=== PATIENT | female | born 1950 | race Caucasian/White ===

== ENCOUNTER 2022-01-13 09:15 | Emergency (ER) | payer SELFPAY ==
--- NOTE | ~2022-01-13 | XR_ITS ---
EXAMINATION: XR lumbar spine 2-3V CLINICAL INFORMATION: Reason for Exam back pain. COMPARISON: None TECHNIQUE: 3 views of the lumbar spine FINDINGS: 5 nonrib-bearing lumbar-type vertebral bodies. Generalized osteopenia which somewhat limits evaluation. Vertebral body heights are maintained. Grade 2 anterolisthesis of L5 on S1. L5-S1 moderate facet arthropathy. Disc space heights are maintained. Paravertebral soft tissues are unremarkable. XR/XR lumbar spine 2-3V IMPRESSION: * Moderate facet arthropathy at L5-S1. Disc space heights are maintained. * Grade 2 anterolisthesis of L5 on S1. * Osteopenia.
[2022-01-13 09:50] VITALS: BP 171/59; PULSE 77; RESP 18; TEMP 36.4; O2SAT 99; BMI 30.9
--- NOTE | 2022-01-13 10:23 | ED_ITS ---
HPI - Back Pain/Injury General Chief Complaint: Back Pain/Injury Stated Complaint: back pain Time Seen by Provider: 01/13/22 10:05 Source: patient Mode of arrival: ambulatory Limitations: no limitations History of Present Illness HPI Narrative: 71-year-old female presents to ED for low back pain that is worse on movement. Patient denies any dysuria, hematuria, abdominal pain, nausea, vomiting, fever, chills, flank pain, or any recent trauma. patient denies any Urinary or bowel incontinence. patietn states no history of IV drug use. Patient has no immunocompromised diseases. MD elicited complaint: back pain Related Data Previous Rx's Medication Instructions Recorded oxycodone 5 mg tablet 5 mg PO Q8H PRN pain 3 days #9 tabs 01/13/22 prednisone 20 mg tablet 40 mg PO DAILY 5 days #10 tabs 01/13/22 Allergies Allergy/AdvReac Type Severity Reaction Status Date / Time No Known Allergies Allergy Verified 01/13/22 09:53 Review of Systems Review of Systems: Back pain on movement Yes all other systems are reviewed and are negative [facility] Social History Social History Advance Directives: No Advance Directives Information Provided: Yes Physical Exam Vital Signs: Vital Signs: Last Vital Signs Temp 97.6 F 01/13/22 13:25 Pulse 58 01/13/22 13:25 Resp 16 01/13/22 13:25 BP 132/67 01/13/22 13:25 Pulse Ox 99 01/13/22 13:25 O2 Del Method 01/13/22 13:25 BMI result Body Mass Index 30.9 Const: General: cooperative, healthy appearing, comfortable, no acute distress, well developed, alert, awake and Physically active Orientation/consciousness: oriented to time and patient oriented x3 HEENT: Head: Yes normal to inspection, Yes No palpable skull fracture present, Yes normocephalic, Yes atraumatic and No abrasion Eyes: General: appearance normal, both eyes and all related structures Neck: Neck: Yes normal visual inspection, Yes full ROM, Yes no lymphadenopathy, Yes no meningeal signs, Yes trachea midline, Yes supple, No anterior neck swelling and No tender Chest: Chest palpation & inspection: normal inspection of the chest and normal palpation of entire chest wall Resp: Effort & Inspection: normal respiratory effort and able to speak in complete sentences Auscultation: clear to auscultation bilaterally Cardio: Jugular venous distension: no JVD Heart sounds: S1 normal heart sound present and S2 normal heart sound present GI: Inspection: Yes normal to inspection and No abdominal wall ecchymosis Palpation (GI): Soft to palpation, not firm, nontender, no guarding and not rigid : General: No CVA tenderness and Yes no CVA tenderness Back/Spine/Pelvis: Other: negative for spine tenderness. Postive for low back pain on range of motion. Back: no CVA tenderness, No CVA tenderness and No back tenderness Skin: General skin exam: no rashes or lesions noted and elasticity normal Neuro: Other: Negative slurred speech. Negative facial droop. negative pronator drift. All extremities equal strenght 5+. Finger to nose and rapid movement intact. negative rhomberg General: oriented to time, patient oriented x3, gait normal, tone normal and no meningeal signs Cranial nerves: Yes CN's II-XII intact bilaterally Cognition (Neuro): normal cognition Gait exam (Neuro): Normal gait present Extrem: General: Yes normal to inspection and Yes full ROM Psych: Appearance: grossly normal and well ket Course Course Course Narrative: UA. lumbar xray, and toradol ordered Reevaluation(s) Reevaluation #1: X-ray shows arthritis. Given Toradol and oxycodone for pain relief Time: 13:34 MDM - Back Pain/Injury MDM Narrative Medical decision making narrative: Lumbar radicular passing Lab Data Labs: Lab Results 01/13/22 Range/Units 10:28 Urine Color YELLOW Urine Appearance CLEAR Urine pH 6.0 (5.0-8.0) Ur Specific [place] 1.010 (1.005-1.025) Urine Protein NEG (NEG-TRACE) MG/DL Urine Glucose (UA) NEG (NEG) MG/DL Urine Ketones NEG (NEG) MG/DL Urine Blood NEG (NEG) Urine Nitrite NEG (NEG) Ur Leukocyte Esterase NEG (NEG) Discharge Plan Discharge Clinical Impression: Lumbar radiculopathy Patient Disposition: Home, Self-Care Instructions: Lumbar Radiculopathy (ED) Additional Instructions: Andino orina result? negativa para infecci?n. La radiograf?a de la columna lumbar muestra artritis. Por favor, judy un seguimiento con el proveedor de atenci?n primaria. Regrese al servicio de urgencias por cualquier incontinencia urinaria/intestinal, dolor abdominal, n?useas, v?mitos, disuria, hematuria, uria, fiebre, escalofr?os, dolor tor?cico, dificultad para respirar o cualquier otro s?ntoma preocupante; consulte al m?dico de atenci?n primaria. El efecto secundario de la oxicodona es la somnolencia. No lo tome mientras conduce, levanta objetos pesados ??o en el trabajo. Prescriptions: New oxycodone 5 mg tablet 5 mg PO Q8H PRN (Reason: pain) 3 Days Qty: 9 0RF Rx Instructions: Partial Fill upon patient request. prednisone 20 mg tablet 40 mg PO DAILY 5 Days Qty: 10 0RF Interventions: ED Discharge Assessment Last Done: 01/13/22 13:42 Discharge Date/Time: 01/13/22 13:42 Print Language: [place]
[2022-01-13] MEDS: Ketorolac Tromethamine 30 MG/ML VIAL IM (10:29)
[2022-01-13 10:38] LABS: Appearance Urine CLEAR; Color Urine YELLOW; Glucose Urine UA NEG (NEG); Leukocyte Esterase Urine NEG (NEG); Nitrite Urine NEG (NEG); Urine Blood NEG (NEG); Urine Ketones NEG (NEG); Urine Protein NEG (NEG-TRACE)
[2022-01-13 12:00] VITALS: RESP 17
[2022-01-13] MEDS: oxyCODONE HCl Immed Release 5 MG TABLET PO (12:45)
[2022-01-13 13:25] VITALS: BP 132/67; PULSE 58; RESP 16; TEMP 36.4; O2SAT 99
== END 2022-01-13 13:42 | disposition home or self-care (01) ==
PROVIDERS: Physician Assistant; Emergency Provider Emergency Medicine
DX: M54.16 Radiculopathy, lumbar region (principal); M54.50 Low back pain, unspecified
CPT/HCPCS: 72100; 81003; 96372; 99284; J1885